=== PATIENT | female | born 1960 | race Caucasian/White ===

== ENCOUNTER 2017-02-23 08:40 | Emergency (ER) | payer BC ==
[2017-02-23 10:11] LABS: HEMOGLOBIN 13.3 gm/dl (12.3-15.3); RED BLOOD COUNT 4.35 M/UL (4.00-5.10); WHITE BLOOD COUNT 9.4 K/UL (4.5-11.0)
[2017-02-23 10:30] LABS: BUN/CREATININE RATIO 24 (0-10)
== END 2017-02-23 14:35 | disposition home or self-care (01) ==
LOC: ER1 08:40
PROVIDERS: Emergency Medicine
DX: R10.9 Unspecified abdominal pain (principal); I10 Essential (primary) hypertension; Z88.1 Allergy status to other antibiotic agents
CPT/HCPCS: 74022; 80053; 81001; 82550; 82553; 83605; 83874; 84484; 85025; 85610; 85730; 93005; 96365; 99284; J0696; J7050